=== PATIENT | male | born 1975 | race Caucasian/White ===

== ENCOUNTER 2016-10-23 15:25 | Emergency (ER) | payer OTHER ==
--- NOTE | 2016-11-02 07:04 | ER ---
ADMIT: 10/23/2016 RM/LOC: ER [facility] MR#: [id number] [address] [id number] BRENDAN DA SILVA [address] [place] [phone] Emergency Room Report SEX: M AGE: 41 : 1975 DATE: 10/23/2016 ADDENDUM: This patient was brought into the ER by police because he was going to go to long term and they realized his blood pressure was very high. The patient states he does not have any history of having blood pressure but he is very anxious having to go to long term and he has had a headache all day today. In the ER, his blood pressure was 209/118. He was given clonidine and lisinopril which did not really seem to help. We then gave him Ativan 1 mg IM and clonidine 0.1 mg p.o. again. When I went to re-evaluate him, his headache was gone and his blood pressure had come down to 144/101. He was released into police custody. Please see my T-sheet. FARIDEH Bergeron / Skyler Luna MD / zachary JOB #: [id number] CC: Skyler Luna MD, Attending Physician Doroteo Khalil MD, Family Physician
== END 2016-10-23 18:55 | disposition home or self-care (01) ==
LOC: ER 15:25
DX: I10 Essential (primary) hypertension (principal)